=== PATIENT | male | born 1980 | race Caucasian/White ===

== ENCOUNTER 2017-11-11 16:33 | Emergency (ER) | payer MEDICARE, OTHER ==
--- NOTE | 2017-11-11 17:49 | EDM.PDOCBH ---
ED HPI GENERAL MEDICAL PROBLEM - General Chief Complaint: Drug or Alcohol Abuse Stated Complaint: MED VIA NORTH Time Seen by Provider: 11/11/17 16:45 Source of Information: Reports: Patient, EMS History Limitations: Reports: Intoxication - History of Present Illness INITIAL COMMENTS - FREE TEXT/NARRATIVE: 36-year-old male brought in by ambulance with acute alcohol intoxication. His girlfriend found him "sick", very intoxicated and was concerned for his health so called the ambulance. He apparently has been trying to wean himself off his clonazepam, what without it for 4 or 5 days and became so anxious that he drank alcohol for the last 12 hours. According to EMS there were 3 empty bottles at his home. He is not suicidal and does not indicate any self-harm intentions. No injuries he is complaining of. Onset: Unknown/Unsure Severity: Moderate Associated Symptoms: Reports: Other (Anxiety) - Related Data Allergies Allergy/AdvReac Type Severity Reaction Status Date / Time ziprasidone [From Geodon] Allergy Swelling Verified 11/11/17 16:39 Home Meds: Home Meds *Ambien 1 PO ASDIRECTED PRN 11/11/17 [History] *Vitamin D 1 PO DAILY 11/11/17 [History] ClonazePAM [KlonoPIN] 1 mg PO QID PRN 11/11/17 [History] Past Medical History Psychiatric History: Reports: ADHD, Anxiety, Bipolar, Dementia, Depression, Panic Attack, Psych Hospitalization(s) Social & Family History - Tobacco Use Smoking Status *Q: Unknown Ever Smoked ED ROS GENERAL - Review of Systems Review Of Systems: See Below Constitutional: Reports: Malaise. Denies: Fever, Chills Respiratory: Denies: Shortness of Breath, Cough Cardiovascular: Denies: Chest Pain GI/Abdominal: Reports: Nausea. Denies: Abdominal Pain, Vomiting : Reports: No Symptoms Musculoskeletal: Reports: No Symptoms Neurological: Denies: Headache Psychiatric: Reports: Anxiety ED EXAM, BEHAVIORAL HEALTH - Physical Exam Exam: See Below Exam Limited By: Intoxication General Appearance: Alert, No Apparent Distress Eye Exam: Bilateral Eye: EOMI (No jaundice) Head: Atraumatic Respiratory/Chest: No Respiratory Distress, Lungs Clear Cardiovascular: Regular Rate, Rhythm GI/Abdominal: Soft, Non-Tender Extremities: No: Pedal Edema Neurological: Alert. No: Oriented x 3 (Patient is disoriented to time) Psychiatric: Flat Affect, Restless Skin Exam: Warm, Dry COURSE, BEHAVIORAL HEALTH COMP - Course Vital Signs: Last Vital Signs Temp 97.7 F 11/11/17 16:38 Pulse 81 11/11/17 16:38 Resp 14 11/11/17 16:38 BP 132/87 11/11/17 16:38 Pulse Ox 98 11/11/17 16:38 Orders, Labs, Meds: Laboratory Tests 11/11/17 11/11/17 Range/Units 17:11 17:11 Sodium 149 H (140-148) mmol/L Potassium 4.4 (3.6-5.2) mmol/L Chloride 110 H (100-108) mmol/L Carbon Dioxide 30 (21-32) mmol/L Anion Gap 13.4 (5.0-14.0) mmol/L BUN 11 (7-18) mg/dL Creatinine 1.0 (0.8-1.3) mg/dL Est Cr Clr Drug Dosing 96.90 mL/min Estimated GFR (MDRD) > 60 (>60) Glucose 94 (74-106) mg/dL Calcium 8.6 (8.5-10.1) mg/dL Ethyl Alcohol 239 mg/dL Re-Assessment/Re-Exam: Patient was given water and some food. He ate without a problem. EtOH, BMP were obtained. Departure - Departure Time of Disposition: 18:06 Disposition: Home, Self-Care 01 Condition: Fair Clinical Impression: Alcohol abuse - Discharge Information Instructions: Alcohol Intoxication, [id number] Referrals: PCP,None [Primary Care Provider] - Forms: ED Department Discharge Care Plan Goals: Resume your medications as prescribed. Avoid alcohol in the near future.
== END 2017-11-11 18:07 | disposition home or self-care (01) ==
LOC: JP.ED 16:33
DX: F10.129 Alcohol abuse with intoxication, unspecified (principal); Y90.8 Blood alcohol level of 240 mg/100 ml or more; Z88.8 Allergy status to other drugs, medicaments and biological substances
CPT/HCPCS: 36415; 80048; 99284; G0480

== ENCOUNTER 2018-05-19 20:41 | Emergency (ER) | payer MEDICARE, OTHER ==
--- NOTE | 2018-05-19 21:46 | EDM.PDOCBH ---
ED HPI GENERAL MEDICAL PROBLEM - General Chief Complaint: Behavioral/Psych Stated Complaint: EVAL Time Seen by Provider: 05/19/18 21:28 Source of Information: Reports: Patient History Limitations: Reports: No Limitations - History of Present Illness INITIAL COMMENTS - FREE TEXT/NARRATIVE: pt arrived feeling very hopeless . He feels like life is not worth living. He had an arugument with his girlfriend earlier today. He recently has tried to buy a house and that did not go through. He recently moved here and does not know alot of people. His girlfriend he has been with for 2 years. Onset: Today Duration: Day(s): Associated Symptoms: Reports: Other (pt is feeling ok physically but is very down. He has been taking his medication. ) denies pain Pain Score (Numeric/FACES): 0 - Related Data Allergies Allergy/AdvReac Type Severity Reaction Status Date / Time gabapentin Allergy Rash Verified 05/19/18 21:17 risperidone Allergy Nausea Verified 05/19/18 21:17 sertraline [From Zoloft] Allergy Depression Verified 05/19/18 21:17 ziprasidone [From Geodon] Allergy Swelling Verified 11/11/17 16:39 Home Meds: Home Meds *Ambien 10 mg PO ASDIRECTED PRN 11/11/17 [History] ClonazePAM [KlonoPIN] 1 mg PO QID 11/11/17 [History] Ranitidine HCl [Zantac] 150 mg PO BEDTIME 05/19/18 [History] Past Medical History Psychiatric History: Reports: ADHD, Anxiety, Bipolar, Dementia, Depression, Panic Attack, Psych Hospitalization(s) ED ROS GENERAL - Review of Systems Review Of Systems: See Below Constitutional: Reports: No Symptoms HEENT: Reports: No Symptoms Respiratory: Reports: No Symptoms Endocrine: Reports: No Symptoms GI/Abdominal: Reports: No Symptoms : Reports: No Symptoms Musculoskeletal: Reports: No Symptoms Skin: Reports: No Symptoms Neurological: Reports: No Symptoms Psychiatric: Reports: Anxiety, Depression, Other (pt is feeling very down and extremely hopeless. ) ED EXAM, BEHAVIORAL HEALTH - Physical Exam Exam: See Below Text/Narrative:: pt is alert and admits to not being a good person to talk his problems out. He has had 3 previous hospitalizations all have been very helpful to him. Exam Limited By: No Limitations General Appearance: Alert, Anxious, Other (pupils are equal anfd reactive) Nose: Normal Inspection Throat/Mouth: Normal Inspection Head: Atraumatic Neck: Normal Inspection Respiratory/Chest: No Respiratory Distress Cardiovascular: Regular Rate, Rhythm GI/Abdominal: Soft, Non-Tender (Male) Exam: Deferred Rectal (Males) Exam: Deferred Back Exam: Normal Inspection Extremities: Normal Inspection Neurological: Alert, Normal Cognition Psychiatric: Alert, Depressed Mood, Restless, Tearful COURSE, BEHAVIORAL HEALTH COMP - Course Vital Signs: Last Vital Signs Temp 36.8 C 05/19/18 21:22 Pulse 80 05/19/18 21:22 Resp 18 05/19/18 21:22 BP 121/75 05/19/18 21:22 Pulse Ox 95 05/19/18 21:22 Orders, Labs, Meds: Laboratory Tests 05/19/18 05/19/18 05/19/18 Range/Units 21:49 21:49 21:49 WBC 8.9 (4.5-11.0) K/uL RBC 5.04 (4.30-5.90) M/uL Hgb 16.0 H (12.0-15.0) g/dL Hct 46.1 (40.0-54.0) % MCV 92 (80-98) fL MCH 32 H (27-31) pg MCHC 35 (32-36) % Plt Count 206 (150-400) K/uL Neut % (Auto) 52 (36-66) % Lymph % (Auto) 35 (24-44) % [place] % (Auto) 10 H (2-6) % Eos % (Auto) 4 (2-4) % Baso % (Auto) 1 (0-1) % Sodium 141 (140-148) mmol/L Potassium 4.0 (3.6-5.2) mmol/L Chloride 105 (100-108) mmol/L Carbon Dioxide 26 (21-32) mmol/L Anion Gap 10.3 (5.0-14.0) mmol/L BUN 19 H D (7-18) mg/dL Creatinine 1.1 (0.8-1.3) mg/dL Est Cr Clr Drug Dosing 87.23 mL/min Estimated GFR (MDRD) > 60 (>60) Glucose 104 (74-106) mg/dL Calcium 8.6 (8.5-10.1) mg/dL Total Bilirubin 0.3 (0.2-1.0) mg/dL AST 20 (15-37) U/L ALT 39 (12-78) U/L Alkaline Phosphatase 71 (46-116) U/L Total Protein 6.8 (6.4-8.2) g/dL Albumin 3.7 (3.4-5.0) g/dL Globulin 3.1 (2.3-3.5) g/dL Albumin/Globulin Ratio 1.2 (1.2-2.2) Urine Color Urine Appearance Urine pH (4.5-8.0) Ur Specific [place] (1.008-1.030) Urine Protein (NEGATIVE) mg/dL Urine Glucose (UA) (NEGATIVE) mg/dL Urine Ketones (NEGATIVE) mg/dL Urine Occult Blood (NEGATIVE) Urine Nitrite (NEGAITVE) Urine Bilirubin (NEGATIVE) Urine Urobilinogen (NORMAL) mg/dL Ur Leukocyte Esterase (NEGATIVE) Urine RBC (0-5) Urine WBC (0-5) Ur Epithelial Cells Amorphous Sediment Urine Bacteria Urine Mucus Urine Opiates Screen (NEGATIVE) Ur Oxycodone Screen (NEGATIVE) Urine Methadone Screen (NEGATIVE) Ur Propoxyphene Screen (NEGATIVE) Ur Barbiturates Screen (NEGATIVE) Ur Tricyclics Screen (NEGATIVE) Ur Phencyclidine Scrn (NEGATIVE) Ur Amphetamine Screen (NEGATIVE) U Methamphetamines Scrn (NEGATIVE) Urine MDMA Screen (NEGATIVE) U Benzodiazepines Scrn (NEGATIVE) U Cocaine Metab Screen (NEGATIVE) U Marijuana (THC) Screen (NEGATIVE) Ethyl Alcohol < 3 mg/dL 05/19/18 05/19/18 Range/Units 22:06 22:06 WBC (4.5-11.0) K/uL RBC (4.30-5.90) M/uL Hgb (12.0-15.0) g/dL Hct (40.0-54.0) % MCV (80-98) fL MCH (27-31) pg MCHC (32-36) % Plt Count (150-400) K/uL Neut % (Auto) (36-66) % Lymph % (Auto) (24-44) % [place] % (Auto) (2-6) % Eos % (Auto) (2-4) % Baso % (Auto) (0-1) % Sodium (140-148) mmol/L Potassium (3.6-5.2) mmol/L Chloride (100-108) mmol/L Carbon Dioxide (21-32) mmol/L Anion Gap (5.0-14.0) mmol/L BUN (7-18) mg/dL Creatinine (0.8-1.3) mg/dL Est Cr Clr Drug Dosing mL/min Estimated GFR (MDRD) (>60) Glucose (74-106) mg/dL Calcium (8.5-10.1) mg/dL Total Bilirubin (0.2-1.0) mg/dL AST (15-37) U/L ALT (12-78) U/L Alkaline Phosphatase (46-116) U/L Total Protein (6.4-8.2) g/dL Albumin (3.4-5.0) g/dL Globulin (2.3-3.5) g/dL Albumin/Globulin Ratio (1.2-2.2) Urine Color Yellow Urine Appearance Clear Urine pH 6.0 (4.5-8.0) Ur Specific [place] 1.020 (1.008-1.030) Urine Protein Negative (NEGATIVE) mg/dL Urine Glucose (UA) Normal (NEGATIVE) mg/dL Urine Ketones Negative (NEGATIVE) mg/dL Urine Occult Blood Negative (NEGATIVE) Urine Nitrite Negative (NEGAITVE) Urine Bilirubin Negative (NEGATIVE) Urine Urobilinogen Normal (NORMAL) mg/dL Ur Leukocyte Esterase Negative (NEGATIVE) Urine RBC Not seen (0-5) Urine WBC Not seen (0-5) Ur Epithelial Cells Few Amorphous Sediment Moderate Urine Bacteria Few Urine Mucus Not seen Urine Opiates Screen Negative (NEGATIVE) Ur Oxycodone Screen Negative (NEGATIVE) Urine Methadone Screen Negative (NEGATIVE) Ur Propoxyphene Screen Negative (NEGATIVE) Ur Barbiturates Screen Negative (NEGATIVE) Ur Tricyclics Screen Negative (NEGATIVE) Ur Phencyclidine Scrn Negative (NEGATIVE) Ur Amphetamine Screen Negative (NEGATIVE) U Methamphetamines Scrn Negative (NEGATIVE) Urine MDMA Screen Negative (NEGATIVE) U Benzodiazepines Scrn Presumptive positive H (NEGATIVE) U Cocaine Metab Screen Negative (NEGATIVE) U Marijuana (THC) Screen Negative (NEGATIVE) Ethyl Alcohol mg/dL Medical Clearance: 05/20/18 00:43 An attempt was made to get the pt to inpt statis because this had been effective for him in the past. Both [facility] and [facility] stated that he did not meet in patient critera. The crisis team was not able to see him tonight because of staffing issues. He felt safe to go home. He will get ahold of his therapist in the AM. He will return here if things are not going well 05/21/18 18:16 Departure - Departure Time of Disposition: 00:39 Disposition: Home, Self-Care 01 Condition: Fair Clinical Impression: Depression - Discharge Information Instructions: Persistent Depressive Disorder, Adult, [id number] Referrals: PCP,None [Primary Care Provider] - Forms: ED Department Discharge Care Plan Goals: Pt has a psychiarist in [place] that he sees and should be seen soon to revaluate med, He has a therapist at [facility] which he has not been good about keeping regular appointments with. At this time he is going to call in the am to schedule an appt with the therapist. He promised that if things got alot worse he would return here.
== END 2018-05-20 00:45 | disposition home or self-care (01) ==
LOC: JP.ED 20:41
DX: F32.9 Major depressive disorder, single episode, unspecified (principal); Z88.8 Allergy status to other drugs, medicaments and biological substances
CPT/HCPCS: 36415; 80053; 80305; 81001; 85025; 99285; G0480

== ENCOUNTER 2021-05-30 02:42 | Emergency (ER) | payer MEDICARE, OTHER ==
[2021-05-30] MEDS ORDERED: Ketorolac 30 MG/ML SDV IM ONE (02:54)
[2021-05-30] MEDS ORDERED: Diphtheria,Pertussis(Acell),Tetanus Vaccine 0.5 ML Syringe IM ONE (02:55)
--- NOTE | 2021-05-30 03:01 | EDM.PDOC ---
ED HPI GENERAL MEDICAL PROBLEM - General Chief Complaint: Head Injury Stated Complaint: FALL VIA MEDICAL Time Seen by Provider: 05/30/21 02:45 Source of Information: Reports: Patient, EMS, Old Records History Limitations: Reports: No Limitations - History of Present Illness INITIAL COMMENTS - FREE TEXT/NARRATIVE: 40 yo intoxicated man was apparently wrestling with his brother and hit his head on the sidewalk with LOC. Has amnesia to some events around the time of the injury. Here via EMS with a scalp wound and a cervical collar placed by EMS. Vitals stable en route. Onset: Today, Sudden Onset Date: 05/30/21 Duration: Minutes:, Improving Location: Reports: Head Quality: Reports: Ache Severity: Moderate Improves with: Reports: None Worsens with: Reports: None Context: Reports: Trauma Associated Symptoms: Reports: Headaches Treatments DIELECTRIC TESTER: Reports: Other (see below) (none) - Related Data Allergies Allergy/AdvReac Type Severity Reaction Status Date / Time gabapentin Allergy Rash Verified 05/30/21 02:48 risperidone Allergy Nausea Verified 05/30/21 02:48 sertraline [From Zoloft] Allergy Depression Verified 05/30/21 02:48 ziprasidone [From Geodon] Allergy Swelling Verified 05/30/21 02:48 Home Meds: Home Meds *Ambien 10 mg PO ASDIRECTED PRN 11/11/17 [History] ClonazePAM [KlonoPIN] 2 mg PO QID 11/11/17 [History] raNITIdine HCl [Zantac] 150 mg PO BEDTIME 05/19/18 [History] PARoxetine HCl [Paxil] 40 mg PO DAILY 05/30/21 [History] Past Medical History Gastrointestinal History: Reports: GERD Musculoskeletal History: Reports: Fracture, Other (See Below) Other Musculoskeletal History: right elbow Psychiatric History: Reports: ADHD, Anxiety, Bipolar, Dementia, Depression, Panic Attack, Psych Hospitalization(s) - Infectious Disease History Infectious Disease History: Reports: Chicken Pox - Past Surgical History Musculoskeletal Surgical History: Reports: Carpal Tunnel, Other (See Below) Other Musculoskeletal Surgeries/Procedures:: 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 Social & Family History - Tobacco Use Tobacco Use Status *Q: Current Every Day Tobacco User Years of Tobacco use: 20 Packs/Tins Daily: 0.5 - Caffeine Use Caffeine Use: Reports: None - Recreational Drug Use Recreational Drug Use: No ED ROS GENERAL - Review of Systems Review Of Systems: See Below Constitutional: Reports: No Symptoms HEENT: Reports: No Symptoms Respiratory: Reports: No Symptoms Cardiovascular: Reports: No Symptoms GI/Abdominal: Reports: No Symptoms : Reports: No Symptoms Musculoskeletal: Reports: No Symptoms Skin: Reports: Wound (occiput) Neurological: Reports: Confusion, Headache, Syncope ED EXAM, HEAD INJURY - Physical Exam Exam: See Below Exam Limited By: No Limitations General Appearance: Alert, WD/WN, No Apparent Distress Head: Scalp Abrasions, Scalp Hematoma, Other (R mosque small hematoma, occiput hematoma is larger with some bleeding) Eyes: Bilateral Eye: Normal Inspection, PERRL Ears: Normal External Exam, Normal Canal, Hearing Grossly Normal, Normal TMs Nose: Normal Inspection, No Blood Throat/Mouth: Normal Inspection, Normal Lips, Normal Oropharynx, Normal Voice, No Airway Compromise Neck: Other (collar left in place until after his neck CT) Respiratory: No Respiratory Distress, Lungs Clear, Normal Breath Sounds, No Accessory Muscle Use Cardiovascular: Regular Rate, Rhythm, No Edema GI/Abdominal Exam: Soft, Non-Tender Back Exam: Normal Inspection Neurologic: auto club travel counselor II-XII nml As Tested, No Motor/Sensory Deficits, Alert, Normal Mood/Affect, Oriented x 3 Skin: Normal Color, Warm/Dry - [place] Coma Score Best Eye Response ([place]): (4) Open Spontaneously Best Verbal Response ([place]): (5) Oriented Best Motor Response ([place]): (6) Obeys Commands [place] Total: 15 Course - Vital Signs Last Recorded V/S: Last Vital Signs Temp 36.2 C 05/30/21 03:30 Pulse 85 05/30/21 03:30 Resp 14 05/30/21 03:30 BP 107/75 05/30/21 03:30 Pulse Ox 97 05/30/21 02:56 - Orders/Labs/Meds Orders: Active Orders 24 hr Category Date Time Status Vaccines to be Administered [RC] PER UNIT ROUTINE Care 05/30/21 02:56 Active Meds: Medications Discontinued Medications Generic Name Dose Route Start Last Admin Trade Name Freq PRN Reason Stop Dose Admin Diphtheria/Tetanus/Acell Pertussis 0.5 ml 05/30/21 02:55 05/30/21 03:01 Diphtheria,Pertussis(Acell),Tetanus Vaccine 0.5 Ml Syringe IM 05/30/21 02:56 0.5 ml .ONCE ONE Administration Ketorolac Tromethamine 30 mg 05/30/21 02:54 05/30/21 03:01 Ketorolac 30 Mg/Ml Sdv IM 05/30/21 02:55 30 mg ONETIME ONE Administration - Radiology Interpretation Free Text/Narrative:: Head and neck CT scans-no pathology noted CT Results Date: 05/30/21 CT Results Time: 05:05 Departure - Departure Time of Disposition: 05:20 Disposition: Home, Self-Care 01 Condition: Fair Clinical Impression: Alcohol intoxication Qualifiers: Complication of substance-induced condition: with unspecified complication Qualified Code(s): F10.929 - Alcohol use, unspecified with intoxication, unspecified Scalp contusion Qualifiers: Encounter type: initial encounter Qualified Code(s): S00.03XA - Contusion of scalp, initial encounter Scalp wound Qualifiers: Encounter type: initial encounter Open wound type: unspecified Qualified Code(s): S01.00XA - Unspecified open wound of scalp, initial encounter Concussion Qualifiers: Encounter type: initial encounter Loss of consciousness presence/duration: with LOC of 30 min or less Qualified Code(s): S06.0X1A - Concussion with loss of c onsciousness of 30 minutes or less, initial encounter - Discharge Information *PRESCRIPTION DRUG MONITORING PROGRAM REVIEWED*: Not Applicable *COPY OF PRESCRIPTION DRUG MONITORING REPORT IN PATIENT [place]: Not Applicable Instructions: Concussion, Adult, [id number] Referrals: PCP,None [Primary Care Provider] - Forms: ED Department Discharge Additional Instructions: Clean your scalp wounds with baby shampoo twice a day. Take ibuprofen 400 mg every 6 hrs as needed for headache. Follow guidelines for concussion: no exertion and mostly rest in bed until all your concussion symptoms have resolved. Return if worse. Sepsis Event Note (ED) - Focused Exam Vital Signs: Vital Signs Temp Pulse Resp BP Pulse Ox 05/30/21 03:30 36.2 C 85 14 107/75 05/30/21 02:56 35.7 C L 91 18 136/82 97 - My Orders Last 24 Hours: My Active Orders 05/30/21 02:56 Vaccines to be Administered [RC] PER UNIT ROUTINE - Assessment/Plan Last 24 Hours: My Active Orders 05/30/21 02:56 Vaccines to be Administered [RC] PER UNIT ROUTINE
--- NOTE | 2021-05-30 04:57 | CRLCT ---
For Patients: As a result of the Century Cures Act, medical imaging exams and procedure reports are released immediately into your electronic medical record. You may view this report before your referring provider. If you have questions, please contact your health care provider. Indication: Fall, head injury Technique: Nonenhanced axial CT imaging through the head. Sagittal and coronal reconstructions are provided. Comparison: None Findings: There is no intracranial hemorrhage, edema, or mass effect. There is normal attenuation of the brain parenchyma. The ventricles are normal in size. The basal cisterns are patent. The calvarium is intact. The visualized mastoid air cells are clear. There is mild paranasal sinus mucosal thickening. There is a left parietal scalp laceration with underlying hematoma. A small hematoma is also noted in the right frontal scalp Impression: Left parietal scalp laceration and hematoma and small right frontal scalp hematoma. No evidence calvarial fracture, intracranial hemorrhage, or brain contusion. Please note that all CT scans at this facility use dose modulation, iterative reconstruction, and/or weight-based dosing when appropriate to reduce radiation dose to as low as reasonably achievable. Dictated by Elvie Harden MD @ 05/30/2021 4:56:[address] Elvie Harden @ May 30 2021 4:56AM
--- NOTE | 2021-05-30 05:03 | CRLCT ---
For Patients: As a result of the Cures Act, medical imaging exams and procedure reports are released immediately into your electronic medical record. You may view this report before your referring provider. If you have questions, please contact your health care provider. Indication: Fall, head injury, loss of consciousness Technique: Nonenhanced axial CT imaging through the cervical spine. Sagittal and coronal reconstructions are provided. Comparison: None Findings: The cervical vertebral bodies are normal in height. There is no evidence of acute fracture. Spinal alignment is normal. The atlantoaxial and atlantooccipital relationships are maintained. There is no prevertebral edema. ACDF changes are present at C6-7. Mild degenerative disc disease is noted at C5-6. There is no appreciable spinal stenosis. Impression: No acute fracture or traumatic malalignment. Please note that all CT scans at this facility use dose modulation, iterative reconstruction, and/or weight-based dosing when appropriate to reduce radiation dose to as low as reasonably achievable. Dictated by Elvie Harden MD @ 05/30/2021 5:02:[address] Elvie Harden @ May 30 2021 5:02AM
== END 2021-05-30 09:13 | disposition home or self-care (01) ==
LOC: JP.ED 02:42
DX: S06.0X1A Concussion with loss of consciousness of 30 minutes or less, initial encounter (principal); S01.00XA Unspecified open wound of scalp, initial encounter; F10.129 Alcohol abuse with intoxication, unspecified; K21.9 Gastro-esophageal reflux disease without esophagitis; Z72.0 Tobacco use; Z23 Encounter for immunization; Z88.8 Allergy status to other drugs, medicaments and biological substances; Z79.899 Other long term (current) drug therapy; W22.8XXA Striking against or struck by other objects, initial encounter; Y93.72 Activity, wrestling; Y92.480 Sidewalk as the place of occurrence of the external cause
CPT/HCPCS: 70450; 72125; 90471; 90715; 96372; 99284; J1885